=== PATIENT | female | born 1985 | race Caucasian/White ===

== ENCOUNTER → 2018-07-28 | Outpatient (CLI) | payer OTHER ==
--- NOTE | 2018-07-28 16:52 | Diagnostic Imaging Report ---
INDICATION: Pelvic pain EXAM: Pelvic sonogram FINDINGS: The uterus measures 9.4 x 5.2 x 3.9 cm. The myometrium appears normal. Endometrial stripe appears normal. The left ovary appears normal. There is a 7 cm simple cyst on right ovary. There is no free fluid. IMPRESSION: There is a 7 cm simple cyst on the right ovary. Dictated by: Dictated on workstation # [id number]
== END ==
LOC: RAD 13:44
PROVIDERS: ATTEND Family Medicine
DX: N83.201 Unspecified ovarian cyst, right side (principal)
CPT/HCPCS: 76830; 76856